=== PATIENT | female | born 1965 | race Hispanic/Latino ===

== ENCOUNTER 2020-06-17 09:07 | Outpatient (CLI) | payer OTHER ==
--- NOTE | 2020-06-17 10:17 | XRay Report ---
CHEST 2 VIEWS INDICATION / CLINICAL INFORMATION: COVID 19 VIRUS DETECTED U07.1. Cough. FINDINGS: SUPPORT DEVICES: None. HEART / MEDIASTINUM: No significant abnormality. LUNGS / PLEURA: No significant pulmonary or pleural abnormality. No pneumothorax. ADDITIONAL FINDINGS: No significant additional findings. IMPRESSION: 1. No acute findings. Signer Name: Cassius Alejandra MD Signed: 06/17/2020 10:13 AM Workstation Name: [id number]
== END 2020-06-17 09:08 | disposition home or self-care (01) ==
LOC: SPVIMAG 09:07
PROVIDERS: ATTEND Internal Medicine
DX: U07.1 COVID-19 (principal)
CPT/HCPCS: 71046